=== PATIENT | male | born 1935 | race Caucasian/White ===

== ENCOUNTER 2023-09-21 12:21 | Emergency (ER) | payer MEDICARE ==
[~2023-09-21] VITALS: Ht 175.3 cm; Wt 75.0 kg
[2023-09-21 12:34] VITALS: BP 136/76; PULSE 87; RESP 16; TEMP 98.5; O2SAT 100
[2023-09-21] MEDS ORDERED: CLOT113C TP (13:16)
[2023-09-21] MEDS ORDERED: BO1 TP (13:16)
== END 2023-09-21 14:23 | disposition home or self-care (01) ==
LOC: ER 12:21
DX: S51.012D Laceration without foreign body of left elbow, subsequent encounter (principal); B35.3 Tinea pedis; I50.9 Heart failure, unspecified; Z98.890 Other specified postprocedural states; Z96.653 Presence of artificial knee joint, bilateral; X58.XXXD Exposure to other specified factors, subsequent encounter
CPT/HCPCS: 99282